=== PATIENT | female | born 1930 | race Caucasian/White ===

== ENCOUNTER → 2016-12-20 | Outpatient (CLI) | payer OTHER, MEDICARE ==
[~2016-12-20] MED LIST: ASPIRIN325 PO; CALCIUM 600 +1 EAC1 PO; CARTIA XT PO; CENTRUM COMPLE1 EACH PO; COMBIGAN EYE DR10 ML GTT; FISH OIL 1,2001 EAC3 PO; GLUCOSAMINE &1 EACH PO; LEVOTHROID PO; LEVOXYL100 MCG PO; PREDNISOLONE 1% GTT; RESTASIS1 EACH PO; SIMVASTATIN20 MG PO; SUPER B COMPLE1 EAC2 PO; SYSTANE ULTRA1 EACH; TRIAMTERENE-HC1 EAC3 PO
== END ==
LOC: HYPER 07:18
DX: S80.812A Abrasion, left lower leg, initial encounter (principal); L03.116 Cellulitis of left lower limb; I10 Essential (primary) hypertension; E03.9 Hypothyroidism, unspecified; Z87.891 Personal history of nicotine dependence; W54.8XXA Other contact with dog, initial encounter

== ENCOUNTER → 2017-01-05 | Outpatient (CLI) | payer OTHER, MEDICARE | LOC: HYPER 07:05 | DX: S80.812D Abrasion, left lower leg, subsequent encounter (principal); E03.9 Hypothyroidism, unspecified; I10 Essential (primary) hypertension; Z72.89 Other problems related to lifestyle; W54.8XXD Other contact with dog, subsequent encounter ==